=== PATIENT | male | born 1940 | race Caucasian/White ===

== ENCOUNTER 2017-01-19 21:12 | Inpatient (IN) ==
[2017-01-19] MEDS ORDERED: Ipratropium/Albuterol Neb 3 ML ONE (21:17)
[2017-01-19] MEDS ORDERED: Vancomycin 1,000 MG in D5% in Water 250 ML IVPB ONE (21:20)
[2017-01-19] MEDS ORDERED: 0.9 % Sodium Chloride 1,000 ML IVC ONE ×2 (21:20→22:23)
[2017-01-19] MEDS ORDERED: Ipratropium/Albuterol Neb 3 ML IH ONE (21:24)
--- NOTE | 2017-01-19 21:24 | Emergency Department Note ---
Disposition Clinical Impression: Acute and chronic respiratory failure ([id number]) Pneumonia Qualifiers: Qualified Code(s): J18.9 - Disposition: Admitted As Inpatient Condition: Good Time of Disposition: 23:56 SOB HPI - General Chief Complaint: ED Shortness of Breath/Dyspnea Stated Complaint: KINDRA Time Seen by Provider: 01/19/17 21:19 Source: patient, EMS Limitations: no limitations Nursing Notes Reviewed: Yes Vital Signs Reviewed: Yes - History of Present Illness Mr. Allen, 76-year-old male, presents from the [place] via [place] on BiPAP for respiratory distress. Per EMS, patient was in the mid 60s oxygen saturation on arrival to the [place] prior placement on BiPAP. Patient states his symptoms started at 5 AM this morning and were not improved with his home dose of oxygen of 2 L nasal cannula or his home albuterol inhalers. He denies any fever or chills. No myalgias, abdominal pains, back pains. No chest pain though he does have bilateral flank rib pain. PMH: History of pneumonia, COPD, pulmonary carcinoma diagnosed in 2012, CHF ( unknown type, unknown EF), dysphasia, GERD, hypertension, BPH Habits: Quit smoking in 2002. Patient is Full Code. He does desire intubation if necessary. - Related Data Home Medications Medication Instructions Recorded Confirmed Alendronate Sodium [Fosamax] 5 mg PO DAILY 01/20/17 01/20/17 Aspirin Enteric Coated [Aspirin EC] 81 mg PO DAILY 01/20/17 01/20/17 Budesonide/Formoterol 160/4.5 2 puff IH BIDR 01/20/17 01/20/17 [Symbicort 160/4.5] Carvedilol 3.125 mg PO BID 01/20/17 01/20/17 Finasteride [Proscar] 5 mg PO HS 01/20/17 01/20/17 Furosemide [Lasix] 20 mg PO 01/20/17 01/20/17 Ipratropium/Albuterol Neb [Duoneb] 3 ml IH Q4HR 01/20/17 01/20/17 Omeprazole [PriLOSEC] 20 mg PO DAILY 01/20/17 01/20/17 Roflumilast [Daliresp] 500 mcg PO DAILY 01/20/17 01/20/17 Tamsulosin [Flomax] 0.4 mg PO BID 01/20/17 01/20/17 guaiFENesin [Guaifenesin] 400 mg PO BID 01/20/17 01/20/17 predniSONE [PredniSONE] 10 mg PO DAILY 01/20/17 01/20/17 Allergies Allergy/AdvReac Type Severity Reaction Status Date / Time lisinopril Allergy Unknown See Verified 01/19/17 21:53 Comments sulfamethoxazole Allergy See Verified 01/19/17 21:53 Comments trimethoprim Allergy See Verified 01/19/17 21:53 Comments All systems ED: reviewed and negative except as stated. Past Medical History - Past Medical History Medical history: Reports: cancer, CHF, COPD - Social History Smoking Status: Former smoker Alcohol use: Reports: none Physical Exam - General Limitations: no limitations General appearance: lethargic Course Course Narrative: [facility]. He was reportedly O2 saturation 65% [facility] He is in the high 80s O2 sat when transitioning from EMS cot to the emergency department bed. On our BiPAP, his O2 saturation is 98% with improved work of breathing. Lung grayson are quite poor air movement. He is tachypneic, tachycardic in the 150s, hypotensive with systolic in the mid 80s; SIRS (+). Will begin sepsis protocol at this time. Patient has a history of congestive heart failure. Will cautiously provide gentle fluid boluses. We will likely not provide 30 mL/kg fluid bolus because of his congestive heart failure. After 1000 mL bolus inappropriate BiPAP settings, patient's respiratory rate is 18, O2 sat is 100%, systolic blood pressure is 120s, heart rate is down to 120s. We will continue to monitor. Initial lactate is within normal limits. Will cancel subsequent lactates. Patient initially placed on empiric antibodies concerning for sepsis. May consider de-escalating these on an inpatient side as his vital signs improved. He appears to responding well to resuscitative efforts. I discussed the patient with the admitting hospitalist, Dr. Gonsalez, who agrees to accept the patient for continued management with the diagnosis of acute exacerbation COPD, community acquired pneumonia.. Chest X-Ray 01/19/17 21:20 IMPRESSION: Left lower lobe pneumonia and small left pleural effusion. Recommend follow up evaluations until clear. D/ / 01/19/2017 21:53:57 Ariel Marino MD / jim Interpreting Provider: Ariel Marino MD Vital Signs Temperature 99.9 F H 01/19/17 21:13 Pulse Rate 144 01/19/17 21:13 Respiratory Rate 28 01/19/17 21:13 Blood Pressure 85/63 01/19/17 21:13 O2 Sat by Pulse Oximetry 86 01/19/17 21:13 Temperature 98.9 F 01/20/17 01:30 Pulse Rate 105 01/20/17 01:30 Respiratory Rate 23 01/20/17 04:08 Blood Pressure 131/72 01/20/17 01:30 O2 Sat by Pulse Oximetry 92 01/20/17 04:08 Oxygen Delivery Oxygen Delivery Bipap Shortness of Breath/Dyspnea - Medical Records Medical records reviewed: Yes I reviewed the patient's medical records. - Lab Data Lab results reviewed: Yes I reviewed the patient's lab results. Result diagrams: 01/19/17 21:33 01/19/17 21:33 Lab Results 01/19/17 01/19/17 01/19/17 Range/Units 21:33 21:33 21:33 WBC 18.8 H (4.3-11.1) K/mcL RBC 4.78 (4.19-5.50) M/mcL Hgb 13.0 (12.9-16.9) g/dL Hct 41.5 (37.5-50.1) % MCV 86.8 (83.0-100.0) fL MCH 27.2 L (28.0-33.3) pg MCHC 31.3 L (31.6-35.5) g/dL RDW 13.6 (11.5-14.5) % Plt Count 508 H (140-400) K/mcL MPV 8.5 L (9.4-12.4) fL Immature Gran % 0.5 (0-4) % Seg Neutrophils % 92.1 % Lymphocytes % 3.0 % Monocytes % 4.2 % Eosinophils % 0.0 % Basophils % 0.2 % Neutrophils # 17.4 H (1.6-8.9) K/mcL Lymphocytes # 0.6 (0.6-4.6) K/mcL Monocytes # 0.8 (0.0-1.3) K/mcL Eosinophils # 0.0 (0.0-0.6) K/mcL Basophils # 0.0 (0.0-0.2) K/mcL PT 11.1 (9.4-12.1) Seconds INR 1.0 APTT 24.2 L (26.0-36.0) Seconds ABG pH (7.32-7.45) pH Units ABG pCO2 (35-45) mmHg ABG pO2 (85-104) mmHg ABG HCO3 (21-27) mEq/L ABG Total CO2 (20-26) mEq/L ABG O2 Saturation (95-98) % ABG Base Excess (-2 to 3) mEq/L Jono Test O2 Delivery Device Inspired O2 (1-15=lpm [id number]=%) PEEP cm H2O Pressure Support cm H2O Sodium 139 (136-145) mEq/L Potassium 4.9 H (3.5-4.5) mEq/L Chloride 97 L (98-109) mEq/L Carbon Dioxide 33 H (19-29) mEq/L BUN 14 (8-26) mg/dL Creatinine 0.94 (0.72-1.25) mg/dL Est GFR ( Amer) > 60 (> 60) Est GFR (Non-Af Amer) > 60 (> 60) BUN/Creatinine Ratio 15 (6-26) Glucose 136 H (70-99) mg/dL Calculated Osmolality 291 (280-300) Lactic Acid (0.5-2.2) mmol/L Calcium 9.7 (8.6-10.8) mg/dL Phosphorus 2.5 (2.3-4.7) mg/dL Magnesium 1.6 (1.6-2.6) mg/dL Total Bilirubin 0.6 (0.2-1.2) mg/dL Direct Bilirubin 0.3 (0.0-0.5) mg/dL Indirect Bilirubin 0.3 (0.0-1.2) mg/dL AST 15 (5-34) Units/L ALT 18 (0-55) Units/L Alkaline Phosphatase 116 (38-126) Units/L Troponin I (0-0.03) ng/mL Serum Total Protein 7.3 (6.0-8.3) g/dL Albumin 3.4 L (3.5-5.0) g/dL Globulin 3.9 H (2.4-3.5) g/dL Albumin/Globulin Ratio 0.9 L (1.1-2.2) 01/19/17 01/19/17 01/19/17 Range/Units 21:33 21:41 22:32 WBC (4.3-11.1) K/mcL RBC (4.19-5.50) M/mcL Hgb (12.9-16.9) g/dL Hct (37.5-50.1) % MCV (83.0-100.0) fL MCH (28.0-33.3) pg MCHC (31.6-35.5) g/dL RDW (11.5-14.5) % Plt Count (140-400) K/mcL MPV (9.4-12.4) fL Immature Gran % (0-4) % Seg Neutrophils % % Lymphocytes % % Monocytes % % Eosinophils % % Basophils % % Neutrophils # (1.6-8.9) K/mcL Lymphocytes # (0.6-4.6) K/mcL Monocytes # (0.0-1.3) K/mcL Eosinophils # (0.0-0.6) K/mcL Basophils # (0.0-0.2) K/mcL PT (9.4-12.1) Seconds INR APTT (26.0-36.0) Seconds ABG pH 7.34 (7.32-7.45) pH Units ABG pCO2 63 H (35-45) mmHg ABG pO2 233 H (85-104) mmHg ABG HCO3 34 H (21-27) mEq/L ABG Total CO2 35 H (20-26) mEq/L ABG O2 Saturation 100 H (95-98) % ABG Base Excess 6 H (-2 to 3) mEq/L Jono Test Positive O2 Delivery Device BiPAP Inspired O2 90.0 (1-15=lpm [id number]=%) PEEP 8 cm H2O Pressure Support 16 cm H2O Sodium (136-145) mEq/L Potassium (3.5-4.5) mEq/L Chloride (98-109) mEq/L Carbon Dioxide (19-29) mEq/L BUN (8-26) mg/dL Creatinine (0.72-1.25) mg/dL Est GFR ( Amer) (> 60) Est GFR (Non-Af Amer) (> 60) BUN/Creatinine Ratio (6-26) Glucose (70-99) mg/dL Calculated Osmolality (280-300) Lactic Acid 1.2 (0.5-2.2) mmol/L Calcium (8.6-10.8) mg/dL Phosphorus (2.3-4.7) mg/dL Magnesium (1.6-2.6) mg/dL Total Bilirubin (0.2-1.2) mg/dL Direct Bilirubin (0.0-0.5) mg/dL Indirect Bilirubin (0.0-1.2) mg/dL AST (5-34) Units/L ALT (0-55) Units/L Alkaline Phosphatase (38-126) Units/L Troponin I 0.00 (0-0.03) ng/mL Serum Total Protein (6.0-8.3) g/dL Albumin (3.5-5.0) g/dL Globulin (2.4-3.5) g/dL Albumin/Globulin Ratio (1.1-2.2) - Radiology Data Radiology results reviewed: Yes I reviewed the patient's radiology results. - EKG Data EKG attestation: Yes I reviewed and interpreted this EKG. EKG results narrative: EKG dated 01/19/17 at 21:27 as sinus tachycardia with a rate of 139. Normal intervals with MI 152, QRS 89, QT/QTC to 70/31. He was present and rhythm is not irregular. Nonspecific ST T changes. Compared to previous dated 2012 showed no acute ischemic changes or comparison. Critical Care Time Critical Care Time: Yes Total Critical Care Time: 40 Attestation: Critical care performed: Time is exclusive of separately billable procedures. Time includes: direct patient care, patient reassessment, coordination of patient care, interpretation of data (laboratory data, radiology data, and respiratory data), review of patient's medical records, medical consultation and documentation of patient care. Procedures included in critical care time: Procedures excluded from critical care time: Attestation Statement - Attestation Attestation: IRayn MD, personally evaluated this patient and discussed their management with the resident physician. I reviewed the resident's note and agree with the documented findings, medical decision making, and plan of care. 76-year-old male with history of COPD transferred here [place] the [place] for respiratory distress. Patient presented there with increased cough and difficulty breathing. They reported his initial pulse oximetry on 2 L was 59%. They increased him to 4 L and he improved to 86%. He was then placed on BiPAP. He did receive Solu-Medrol and albuterol treatment there. Patient arrived here on BiPAP in moderate respiratory distress. Initial pulse was about 145. Oxygen saturation in the upper 80s initially. He was placed on our BiPAP and oxygen saturation improved to 100%. He received DuoNeb treatments here. Chest x-ray shows a left lower lobe pneumonia. Patient meets severe sepsis criteria. Patient improved significantly here with treatment. Heart rate improved down to 110. Blood pressure improved from 85 systolic to 128 systolic. On examination the patient is a well-developed well-nourished elderly male in moderate respiratory distress. He is alert. There is no cyanosis or diaphoresis. Breath sounds are markedly decreased bilaterally. Heart tachycardic and regular. Abdomen soft and nontender with normal bowel sounds. Chest x-ray shows a left lower lobe pneumonia. Labs reviewed. Leukocytosis. Lactic acid normal. EKG shows a sinus tachycardia with a heart rate of 139. No acute ischemic changes. Blood cultures obtained and broad-spectrum antibiotics initiated. The hospitalist, Dr. Mark, was consulted and accepted admission of the patient.
[2017-01-19] MEDS ORDERED: Cefepime HCl 2,000 MG in D5% in Water (Mini-Bag+) 100 ML IVPB STA (21:39)
[2017-01-19 22:08] LABS: Basophils % 0.2 %; Hematocrit 41.5 % (37.5-50.1); Immature Granulocytes % 0.5 % (0-4); Lymphocytes # 0.6 K/mcL (0.6-4.6); Mean Corpuscular HGB Conc 31.3 g/dL (31.6-35.5); Mean Corpuscular Hemoglobin 27.2 pg (28.0-33.3); Mean Corpuscular Volume 86.8 fL (83.0-100.0); Mean Platelet Volume 8.5 fL (9.4-12.4); Monocytes # 0.8 K/mcL (0.0-1.3); Monocytes % 4.2 %; Neutrophils # 17.4 K/mcL (1.6-8.9); Platelet Count 508 K/mcL (140-400); Red Blood Count 4.78 M/mcL (4.19-5.50); Red Cell Distribution Width 13.6 % (11.5-14.5); Segmented Neutrophils % 92.1 %
[2017-01-19 22:14] LABS: Prothrombin Time 11.1 Seconds (9.4-12.1)
[2017-01-19 22:17] LABS: Activated Partial Thrombo Time 24.2 Seconds (26.0-36.0)
[2017-01-19 22:23] LABS: Alanine Aminotransferase 18 Units/L (0-55); Albumin 3.4 g/dL (3.5-5.0); Albumin/Globulin Ratio 0.9 (1.1-2.2); Alkaline Phosphatase 116 Units/L (38-126); Aspartate Amino Transferase 15 Units/L (5-34); BUN/Creatinine Ratio 15 (6-26); Bilirubin,Direct 0.3 mg/dL (0.0-0.5); Bilirubin,Indirect 0.3 mg/dL (0.0-1.2); Bilirubin,Total 0.6 mg/dL (0.2-1.2); Blood Urea Nitrogen 14 mg/dL (8-26); Calcium 9.7 mg/dL (8.6-10.8); Carbon Dioxide 33 mEq/L (19-29); Chloride 97 mEq/L (98-109); Globulin 3.9 g/dL (2.4-3.5); Glucose 136 mg/dL (70-99); Magnesium 1.6 mg/dL (1.6-2.6); Osmolality,Calculated 291 (280-300); Phosphorous 2.5 mg/dL (2.3-4.7); Potassium 4.9 mEq/L (3.5-4.5); Sodium 139 mEq/L (136-145); Total Protein 7.3 g/dL (6.0-8.3); eGFR For African Americans > 60 (> 60); eGFR For Non-African Americans > 60 (> 60)
[2017-01-19 22:38] LABS: ABG Base Excess 6 mEq/L (-2 to 3); ABG HCO3 34 mEq/L (21-27); ABG Oxygen Saturation 100 % (95-98); ABG PCO2 63 mmHg (35-45); ABG PH 7.34 pH Units (7.32-7.45); ABG PO2 233 mmHg (85-104); ABG TCO2 35 mEq/L (20-26); Blood Gas PEEP 8 cm H2O; Blood Gas Pressure Support 16 cm H2O
--- NOTE | 2017-01-20 00:52 | Internal Med History&Physical ---
Date of Encounter: 01/20/17 Time of Encounter: 00:50 Assessment and Plan (1) Hypercapnic respiratory failure Current visit: Yes Status: Acute Patient is currently on BiPAP. FIO2 40%. Continue BiPAP. Qualifiers: Qualified Code(s): J96.92 - Respiratory failure, unspecified with hypercapnia (2) Pneumonia Current visit: Yes Status: Acute Because of acuity of presentation I will cover patient for Pseudomonas. We will start Zosyn 3.375 Q6 hours. Check sputum on blood cultures. Qualifiers: Qualified Code(s): J18.9 - Pneumonia, unspecified organism (3) Acute exacerbation of chronic obstructive pulmonary disease (COPD) Current visit: Yes Status: Acute Start patient on IV steroids and [id number] nebulizer treatments. Internal Medicine - H&P: HPI Chief complaint: sob History of present illness: Mr. Allen is a 76 year old male with a history of COPD on 2 L of home oxygen presents to the [place] today with the main completion of shortness of breath. Since yesterday patient started noticing progressive shortness of breath to the point where he is unable to breathe the rest. He is having productive cough and chest wheezing. Patient was hypoxic on arrival to the [place] emergency room down to 60% and was placed on BiPAP. He Was transferred to our facility for further management. He denies any lower extremity swelling, orthopnea, paroxysmal nocturnal dyspnea. He was afebrile. No chest pain. He was speaking in 3 to 4 word sentences during my interview. Past Med Surg Social Fam HX - Past Medical History Medical history: cancer, CHF, COPD - Social History Smoking Status: Former smoker Alcohol use: none Internal Medicine - H&P: Meds Albuterol Neb 1 PO QID 08/31/15 [History] Alfuzosin HCl 1 tab PO DAILY 08/31/15 [History] Aspirin 1 tab PO DAILY 08/31/15 [History] Carvedilol 0.5 tab PO BID 08/31/15 [History] Finasteride 1 tab PO DAILY 08/31/15 [History] Lasix 1 tab PO DAILY 08/31/15 [History] Omeprazole 1 tab PO DAILY 08/31/15 [History] Symbicort 160/4.5 BID 08/31/15 [History] 3 Allergy/AdvReac Type Severity Reaction Status Date / Time lisinopril Allergy Unknown See Verified 01/19/17 21:53 Comments sulfamethoxazole Allergy See Verified 01/19/17 21:53 Comments trimethoprim Allergy See Verified 01/19/17 21:53 Comments All Systems PM: A 10-system review of systems was performed and is negative for pertinent findings except as documented above in the HPI. Review of systems: 10 point review of systems is negative except for HPI - Constitutional Vitals: Temp Pulse Resp BP Pulse Ox 99.9 F H 107 18 128/91 94 01/19/17 21:13 01/19/17 23:16 01/20/17 00:47 01/20/17 00:47 01/19/17 23:16 Exam: Gen.: patient is alert oriented times 3 not in distress cardiac: Normal S1, S2, no additional sounds or murmurs chest: significantly diminshed air entry, expiratory wheeze Abdomen: Soft, nontender, non distended, no rebound lower extremity Lax calf muscles no swelling Neuro: no focal deficits Internal Med - H&P Results - Labs CBC & Chem 7: 01/19/17 21:33 01/19/17 21:33
[2017-01-20] MEDS: Ipratropium/Albuterol Neb 3 ML IH SCH ×6 (01:47→20:19)
[2017-01-20 04:22] LABS: BUN/Creatinine Ratio 16 (6-26); Blood Urea Nitrogen 14 mg/dL (8-26); Calcium 8.7 mg/dL (8.6-10.8); Carbon Dioxide 30 mEq/L (19-29); Chloride 100 mEq/L (98-109); Glucose 177 mg/dL (70-99); Magnesium 1.5 mg/dL (1.6-2.6); Osmolality,Calculated 291 (280-300); Potassium 4.8 mEq/L (3.5-4.5); Sodium 138 mEq/L (136-145); eGFR For African Americans > 60 (> 60); eGFR For Non-African Americans > 60 (> 60)
[2017-01-20 04:42] LABS: Hemoglobin 11.8 g/dL (12.9-16.9)
[2017-01-20 04:44] LABS: Hematocrit 38.5 % (37.5-50.1); Mean Corpuscular HGB Conc 30.6 g/dL (31.6-35.5); Mean Corpuscular Hemoglobin 26.9 pg (28.0-33.3); Mean Corpuscular Volume 87.9 fL (83.0-100.0); Mean Platelet Volume 8.7 fL (9.4-12.4); Nucleated Red Blood Cells 0.1 /100 WBC (0); Platelet Count 508 K/mcL (140-400); Red Blood Count 4.38 M/mcL (4.19-5.50); Red Cell Distribution Width 13.7 % (11.5-14.5)
[2017-01-20] MEDS ORDERED: Piperacillin/Tazobactam 3.375 GM in D5% in Water (Mini-Bag+) 100 ML IVPB SCH (06:00)
[2017-01-20 06:15] LABS: Lymphocytes # 0.5 K/mcL (0.6-4.6); Monocytes # 2.1 K/mcL (0.0-1.3); Neutrophils # 23.7 K/mcL (1.6-8.9)
[2017-01-20 06:16] LABS: Large Platelets Present (Not Present); Platelet Estimate Increased (Normal)
[2017-01-20] MEDS: methylPREDNISolone 125 MG/2 ML VIAL IVP SCH ×4 (06:28→22:21)
[2017-01-20] MEDS: *HR* Heparin 5,000 UNIT/ML VIAL SQ SCH ×3 (06:29→22:19)
--- NOTE | 2017-01-20 09:09 | Electrocardiograph Report ---
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
--- NOTE | 2017-01-20 09:43 | Event Note ---
<Armand Allen R - Last Filed: 01/20/17 14:10> Date of Encounter: 01/20/17 Time of Encounter: 09:33 69 year old male with PMH of COPD (2L O2 at home) and CHF here with acute exacerbation of COPD and left lower lobe pneumonia. He reports that his breathing is improved compared to last night, but still has conversational dyspnea. Continues to report productive cough and wheezing. Denies chest pain, N /V/D/C, dysuria or leg pain/edema. EXAM: Gen: NAD, A7Ox3 Resp: diminished breath sounds bilaterally, +expiratory wheeze CV: RRR, S1 and S2, no murmurs. No edema Abd: soft, NT/ND, BSx4, no organomegaly Ext: no edema, pulses equal bilaterally Neuro: no focal deficits Skin: dry and intact PLAN: Hypercapnic respiratory failure - continue BiPAP Left Lower Lobe Pneumonia - WBC 26 with bandemia, continue antibiotics, sputum and blood cultures pending AECOPD - continue steroids and duonebs <River Modi P - Last Filed: 01/20/17 17:41> Date of Encounter: 01/20/17 I examined this patient and my medical decision-making was reviewed with the Resident Physician. I agree with the documented findings, disposition and treatment plan as described except to the extent set forth below.
[2017-01-20] MEDS ORDERED: ALENDRONATE SODIUM 5 MG PO SCH (11:30)
[2017-01-20] MEDS: (Roflumilast [Daliresp] 500 MCG) PO SCH (11:39)
[2017-01-20] MEDS: Budesonide/Formoterol 160/4.5 MDI IH SCH ×2 (12:06→20:21)
[2017-01-20] MEDS: GuaiFENesin Liq 200 MG/10 ML UDC PO SCH ×2 (12:09→22:19)
[2017-01-20] MEDS: Finasteride 5 MG TABLET PO SCH ×2 (12:09→22:19)
[2017-01-20] MEDS: Aspirin Enteric Coated 81 MG Tablet PO SCH (12:09)
[2017-01-20] MEDS: Piperacillin/Tazobactam 3.375 GM in D5% in Water (Mini-Bag+) 100 ML IVPB SCH ×2 (14:27→22:20)
[2017-01-21] MEDS: Ipratropium/Albuterol Neb 3 ML IH SCH ×7 (00:12→23:23)
[2017-01-21] MEDS: *HR* Heparin 5,000 UNIT/ML VIAL SQ SCH ×3 (05:47→22:01)
[2017-01-21] MEDS: methylPREDNISolone 125 MG/2 ML VIAL IVP SCH ×4 (05:49→23:27)
[2017-01-21] MEDS: Piperacillin/Tazobactam 3.375 GM in D5% in Water (Mini-Bag+) 100 ML IVPB SCH ×3 (05:53→22:00)
[2017-01-21 07:45] LABS: BUN/Creatinine Ratio 24 (6-26); Blood Urea Nitrogen 17 mg/dL (8-26); Carbon Dioxide 32 mEq/L (19-29); Chloride 101 mEq/L (98-109); Glucose 137 mg/dL (70-99); Osmolality,Calculated 294 (280-300); Potassium 3.9 mEq/L (3.5-4.5); Sodium 140 mEq/L (136-145); eGFR For African Americans > 60 (> 60); eGFR For Non-African Americans > 60 (> 60)
[2017-01-21 07:51] LABS: Basophils % 0.1 %; Hematocrit 34.7 % (37.5-50.1); Hemoglobin 10.8 g/dL (12.9-16.9); Lymphocytes % 6.7 %; Mean Corpuscular HGB Conc 31.1 g/dL (31.6-35.5); Mean Corpuscular Hemoglobin 27.1 pg (28.0-33.3); Mean Corpuscular Volume 87.2 fL (83.0-100.0); Mean Platelet Volume 8.8 fL (9.4-12.4); Monocytes # 0.5 K/mcL (0.0-1.3); Monocytes % 3.1 %; Neutrophils # 13.6 K/mcL (1.6-8.9); Platelet Count 434 K/mcL (140-400); Red Blood Count 3.98 M/mcL (4.19-5.50); Red Cell Distribution Width 13.9 % (11.5-14.5); Segmented Neutrophils % 89.1 %
[2017-01-21] MEDS: Budesonide/Formoterol 160/4.5 MDI IH SCH ×2 (08:09→20:12)
[2017-01-21] MEDS: Aspirin Enteric Coated 81 MG Tablet PO SCH (08:22)
[2017-01-21] MEDS: GuaiFENesin Liq 200 MG/10 ML UDC PO SCH ×2 (08:22→22:09)
[2017-01-21] MEDS: (Roflumilast [Daliresp] 500 MCG) PO SCH (08:22)
[2017-01-21 09:46] LABS: ABG Base Excess 6 mEq/L (-2 to 3); ABG HCO3 33 mEq/L (21-27); ABG Oxygen Saturation 78 % (95-98); ABG PCO2 54 mmHg (35-45); ABG PH 7.39 pH Units (7.32-7.45); ABG PO2 44 mmHg (85-104); ABG TCO2 34 mEq/L (20-26)
--- NOTE | 2017-01-21 18:09 | Internal Med Progress Note ---
Date of Encounter: 01/21/17 Time of Encounter: 18:07 - Assessment and plan (1) Acute exacerbation of chronic obstructive pulmonary disease (COPD) Current Visit: Yes Status: Acute Assessment and plan: Patient is inaccurate exacerbation of her COPD. His presently hypoxic He is on steroids/antibiotics/bronchodilators. We will continue present treatment for now. (2) Hypercapnic respiratory failure Current Visit: Yes Status: Acute Assessment and plan: Patient will elevated PCO2 54 Upon admission his PCO2 was 63. Patient has significant improvement. We will continue same treatment for now. 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 We will continue present treatment for him now - Subjective Interval history: Patient seen and examined. Chart reviewed. patient is comfortably lying in the bed. patient is occasionally short of breath. Patient denies chest pain, dizziness, diarrhea, abdominal pain or nausea. - Constitutional Vitals: Temp Pulse Resp BP Pulse Ox 98.3 F 98 18 120/68 98 01/21/17 16:06 01/21/17 16:06 01/21/17 16:06 01/21/17 16:06 01/21/17 16:06 General appearance: Present: A&O X 3, pleasant, no acute distress, answers questions appropriately - Head Head exam: Present: atraumatic, normocephalic - Eye Eye exam: Present: PERRL, conjuntiva pink, sclera anicteric Pupils: Present: PERRL - Neck Neck exam general surgery: Present: supple, trachea midline. Absent: lymphadenopathy - Respiratory Respiratory exam: Present: CTAB. Absent: accessory muscle use, rales, rhonchi, wheezes - Cardiovascular Cardiovascular exam: Present: RRR, +S1, +S2. Absent: diastolic murmur, gallop, rubs, systolic murmur - GI/Abdominal GI/Abdominal exam: Present: normal bowel sounds, soft, no peritoneal signs. Absent: distended, tenderness - Extremities Exam Extremities exam: Present: warm, radial pulses palpable and symmetrical. Absent : calf tenderness, cyanotic, pedal edema - Neurological Exam Neurological exam: Present: CN II-XII intact, oriented X3, no focal deficits. Absent: pronater drift, facial droop, speech deficit - Skin Skin exam: Present: dry, intact Internal Medicine: Result - Labs CBC & Chem 7: 01/21/17 07:09 01/21/17 07:09 Labs: Short CBC 01/21/17 Range/Units 07:09 WBC 15.2 H (4.3-11.1) K/mcL Hgb 10.8 L (12.9-16.9) g/dL Hct 34.7 L (37.5-50.1) % Plt Count 434 H (140-400) K/mcL Neutrophils # 13.6 H (1.6-8.9) K/mcL BMP 01/21/17 07:09 Sodium 140 Potassium 3.9 Chloride 101 Carbon Dioxide 32 H BUN 17 Creatinine 0.71 L Glucose 137 H Calcium 9.0 - ABG Interpretation ABG results: ABG ABG pH 7.39 pH Units (7.32-7.45) 01/21/17 09:36 ABG pCO2 54 mmHg (35-45) H 01/21/17 09:36 ABG pO2 44 mmHg (85-104) L* 01/21/17 09:36 ABG O2 Saturation 78 % (95-98) L 01/21/17 09:36 PT/INR, D-dimer PT 11.1 Seconds (9.4-12.1) 01/19/17 21:33 - VTE Documentation of Mechanical Device: Intermittent pneumatic compression device Consult Discharge Plan - Plan [facility]errals: [facility] [Primary Care Provider] -
[2017-01-21] MEDS: Finasteride 5 MG TABLET PO SCH (22:00)
[2017-01-22 03:35] LABS: Basophils % 0.1 %; Hemoglobin 10.2 g/dL (12.9-16.9); Immature Granulocytes % 1.2 % (0-4); Lymphocytes # 0.8 K/mcL (0.6-4.6); Lymphocytes % 6.1 %; Mean Corpuscular HGB Conc 30.9 g/dL (31.6-35.5); Mean Corpuscular Hemoglobin 27.1 pg (28.0-33.3); Mean Corpuscular Volume 87.5 fL (83.0-100.0); Monocytes # 0.5 K/mcL (0.0-1.3); Monocytes % 3.5 %; Neutrophils # 12.2 K/mcL (1.6-8.9); Platelet Count 413 K/mcL (140-400); Red Blood Count 3.77 M/mcL (4.19-5.50); Segmented Neutrophils % 89.1 %
[2017-01-22 03:44] LABS: BUN/Creatinine Ratio 26 (6-26); Blood Urea Nitrogen 20 mg/dL (8-26); Calcium 8.6 mg/dL (8.6-10.8); Carbon Dioxide 35 mEq/L (19-29); Chloride 100 mEq/L (98-109); Glucose 166 mg/dL (70-99); Osmolality,Calculated 298 (280-300); Sodium 141 mEq/L (136-145); eGFR For African Americans > 60 (> 60); eGFR For Non-African Americans > 60 (> 60)
[2017-01-22] MEDS: Ipratropium/Albuterol Neb 3 ML IH SCH ×6 (03:56→23:43)
[2017-01-22] MEDS: methylPREDNISolone 125 MG/2 ML VIAL IVP SCH ×3 (05:53→16:51)
[2017-01-22] MEDS: *HR* Heparin 5,000 UNIT/ML VIAL SQ SCH ×3 (05:53→21:01)
[2017-01-22] MEDS: Piperacillin/Tazobactam 3.375 GM in D5% in Water (Mini-Bag+) 100 ML IVPB SCH ×3 (05:54→21:01)
[2017-01-22 06:17] LABS: Bilirubin,Urine Negative (Negative); Blood,Urine Small (Negative); Clarity,Urine Clear (Clear); Color,Urine Yellow (Yellow); Glucose,Urine (UA) 100 mg/dL (Normal); Ketones,Urine Negative (Negative); Leukocyte Esterase,Urine Negative (Negative); Nitrite,Urine Negative (Negative); Protein,Urine 30 mg/dL (Neg-Trace); Specific Gravity,Urine > 1.030 (1.010-1.025); Urobilinogen,Urine Normal (Normal)
[2017-01-22 06:20] LABS: Bacteria,Urine None Seen per hpf (None-Few); Hyaline Casts,Urine None Seen per lpf (None-Few); RBC,Urine 30-50 per hpf (0-3); Squamous Epithelial Cell,Urine Many per lpf (None-Few)
[2017-01-22] MEDS: Budesonide/Formoterol 160/4.5 MDI IH SCH ×2 (08:11→20:31)
[2017-01-22] MEDS: (Roflumilast [Daliresp] 500 MCG) PO SCH (10:00)
[2017-01-22] MEDS: Aspirin Enteric Coated 81 MG Tablet PO SCH (10:00)
[2017-01-22] MEDS: GuaiFENesin Liq 200 MG/10 ML UDC PO SCH ×2 (10:00→20:48)
--- NOTE | 2017-01-22 17:44 | Internal Med Progress Note ---
Date of Encounter: 01/22/17 Time of Encounter: 17:42 - Assessment and plan (1) Acute exacerbation of chronic obstructive pulmonary disease (COPD) Current Visit: Yes Status: Acute Assessment and plan: Patient is in acute exacerbation of her COPD. His presently hypoxic He is on steroids/antibiotics/bronchodilators. We will continue present treatment for now. 01/22/2017 Patient oxygen saturation is much better as compared to yesterday. Antibiotics: Day 2 Patient presently on steroids. Patient is on bronchodilators. We will continue the same treatment for now (2) Hypercapnic respiratory failure Current Visit: Yes Status: Acute Assessment and plan: Patient will elevated PCO2 54 Upon admission his PCO2 was 63. Patient has significant improvement. We will continue same treatment for now. 01/22/2017 Patient's oxygenation improved. Patient is more alert and oriented. 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 We will continue present treatment for him now - Subjective Interval history: Patient seen and examined. Chart reviewed. patient is comfortably lying in the bed. patient is occasionally short of breath. Patient denies chest pain, dizziness, diarrhea, abdominal pain or nausea. 01/22/2017 Patient seen and examined. Chart reviewed. Patient comfortably lying in the bed. Patient feels much better as compared to yesterday. Patient denies chest pain, dizziness, diarrhea, abdominal pain - Constitutional Vitals: Temp Pulse Resp BP Pulse Ox 97.9 F 89 17 127/65 95 01/22/17 15:00 01/22/17 15:00 01/22/17 15:00 01/22/17 15:00 01/22/17 15:00 General appearance: Present: A&O X 3, pleasant, no acute distress, answers questions appropriately - Head Head exam: Present: atraumatic, normocephalic - Eye Eye exam: Present: PERRL, conjuntiva pink, sclera anicteric Pupils: Present: PERRL - Neck Neck exam general surgery: Present: supple, trachea midline. Absent: lymphadenopathy - Respiratory Respiratory exam: Present: CTAB. Absent: accessory muscle use, rales, rhonchi, wheezes - Cardiovascular Cardiovascular exam: Present: RRR, +S1, +S2. Absent: diastolic murmur, gallop, rubs, systolic murmur - GI/Abdominal GI/Abdominal exam: Present: normal bowel sounds, soft, no peritoneal signs. Absent: distended, tenderness - Extremities Exam Extremities exam: Present: warm, radial pulses palpable and symmetrical. Absent : calf tenderness, cyanotic, pedal edema - Neurological Exam Neurological exam: Present: CN II-XII intact, oriented X3, no focal deficits. Absent: pronater drift, facial droop, speech deficit - Skin Skin exam: Present: dry, intact Internal Medicine: Result - Labs CBC & Chem 7: 01/22/17 02:50 01/22/17 02:50 Labs: Short CBC 01/22/17 Range/Units 02:50 WBC 13.7 H (4.3-11.1) K/mcL Hgb 10.2 L (12.9-16.9) g/dL Hct 33.0 L (37.5-50.1) % Plt Count 413 H (140-400) K/mcL Neutrophils # 12.2 H (1.6-8.9) K/mcL BMP 01/22/17 02:50 Sodium 141 Potassium 4.0 Chloride 100 Carbon Dioxide 35 H BUN 20 Creatinine 0.76 Glucose 166 H Calcium 8.6 Urine 01/22/17 Range/Units 06:05 Urine Color Yellow (Yellow) Urine Clarity Clear (Clear) Urine pH 6.0 (5.0-8.0) pH Units Ur Specific [place] > 1.030 H (1.010-1.025) Urine Protein 30 H (Neg-Trace) mg/dL Urine Glucose (UA) 100 H (Normal) mg/dL - ABG Interpretation ABG results: ABG ABG pH 7.39 pH Units (7.32-7.45) 01/21/17 09:36 ABG pCO2 54 mmHg (35-45) H 01/21/17 09:36 ABG pO2 44 mmHg (85-104) L* 01/21/17 09:36 ABG O2 Saturation 78 % (95-98) L 01/21/17 09:36 PT/INR, D-dimer PT 11.1 Seconds (9.4-12.1) 01/19/17 21:33 - VTE Documentation of Mechanical Device: Intermittent pneumatic compression device Consult Discharge Plan - Plan [facility]errals: [facility] [Primary Care Provider] -
[2017-01-22] MEDS: Finasteride 5 MG TABLET PO SCH (20:49)
[2017-01-23] MEDS: methylPREDNISolone 125 MG/2 ML VIAL IVP SCH ×3 (00:02→12:18)
[2017-01-23] MEDS: Ipratropium/Albuterol Neb 3 ML IH SCH ×6 (03:35→23:06)
[2017-01-23 04:18] LABS: Basophils % 0.1 %; Hematocrit 34.5 % (37.5-50.1); Hemoglobin 10.3 g/dL (12.9-16.9); Immature Granulocytes % 1.1 % (0-4); Lymphocytes # 0.7 K/mcL (0.6-4.6); Lymphocytes % 7.4 %; Mean Corpuscular HGB Conc 29.9 g/dL (31.6-35.5); Mean Corpuscular Hemoglobin 26.5 pg (28.0-33.3); Mean Corpuscular Volume 88.7 fL (83.0-100.0); Mean Platelet Volume 8.8 fL (9.4-12.4); Monocytes # 0.3 K/mcL (0.0-1.3); Monocytes % 2.6 %; Neutrophils # 8.7 K/mcL (1.6-8.9); Platelet Count 439 K/mcL (140-400); Red Blood Count 3.89 M/mcL (4.19-5.50); Red Cell Distribution Width 13.9 % (11.5-14.5); Segmented Neutrophils % 88.8 %
[2017-01-23 04:35] LABS: BUN/Creatinine Ratio 35 (6-26); Blood Urea Nitrogen 25 mg/dL (8-26); Calcium 8.6 mg/dL (8.6-10.8); Carbon Dioxide 35 mEq/L (19-29); Chloride 102 mEq/L (98-109); Glucose 167 mg/dL (70-99); Osmolality,Calculated 304 (280-300); Potassium 4.1 mEq/L (3.5-4.5); Sodium 143 mEq/L (136-145); eGFR For African Americans > 60 (> 60); eGFR For Non-African Americans > 60 (> 60)
[2017-01-23] MEDS: Piperacillin/Tazobactam 3.375 GM in D5% in Water (Mini-Bag+) 100 ML IVPB SCH ×3 (05:31→22:45)
[2017-01-23] MEDS: *HR* Heparin 5,000 UNIT/ML VIAL SQ SCH ×3 (05:33→21:07)
[2017-01-23] MEDS: Budesonide/Formoterol 160/4.5 MDI IH SCH ×2 (07:29→19:38)
[2017-01-23] MEDS: Aspirin Enteric Coated 81 MG Tablet PO SCH (09:06)
[2017-01-23] MEDS: GuaiFENesin Liq 200 MG/10 ML UDC PO SCH ×2 (09:06→21:07)
[2017-01-23] MEDS: (Roflumilast [Daliresp] 500 MCG) PO SCH (09:06)
--- NOTE | 2017-01-23 11:00 | Internal Med Progress Note ---
<Armand Allen - Last Filed: 01/23/17 17:37> Date of Encounter: 01/23/17 Time of Encounter: 10:58 - Assessment and plan (1) Acute exacerbation of chronic obstructive pulmonary disease (COPD) Current Visit: Yes Status: Acute Assessment and plan: Patient is in acute exacerbation of her COPD. Hypoxic on 7L O2 today (on 2L O2 at home). Reports he takes symbicort at home, but had a prior reaction to spiriva Plan: Decrease steroids, add mucinex, continue bronchodilators, and BiPAP Continue Zosyn day #3 Wean oxygen as tolerated (2) Hypercapnic respiratory failure Current Visit: Yes Status: Acute Assessment and plan: Patient will elevated PCO2 54. Upon admission his PCO2 was 63. Clinically pt is much improved. Continue treatment as above Qualifiers: Chronicity: acute on chronic Qualified Code(s): J96.22 - Acute and chronic respiratory failure with hypercapnia (3) Pneumonia Current Visit: Yes Status: Acute Assessment and plan: Left lower lobe pneumonia on CXR. On zosyn day #3 - will de-escalate antibiotics as able. WBC improving. Blood culture 01/19/17 - no growth to date Sputum culture 01/22/17 - no growth to date Qualifiers: Pneumonia type: due to unspecified organism Laterality: left Lung location: lower lobe of lung Qualified Code(s): J18.1 - Lobar pneumonia, unspecified organism (4) Primary cancer of right middle lobe of lung Current Visit: No Status: Acute Assessment and plan: History of for lung cancer. We will continue present treatment for him now - Subjective Interval history: Pt lying comfortably in bed. Reports his breathing is mildly improved. Still reports productive cough. Denies chest pain, N/V?D?C, dysuria, or leg pain/edema - Constitutional Vitals: Temp Pulse Resp BP Pulse Ox 97.9 F 83 14 127/79 99 01/23/17 10:31 01/23/17 10:31 01/23/17 10:31 01/23/17 10:31 01/23/17 10:31 General appearance: Present: A&O X 3, pleasant, no acute distress, answers questions appropriately - Head Head exam: Present: atraumatic, normocephalic - Eye Eye exam: Present: conjuntiva pink, sclera anicteric - Neck Neck exam general surgery: Present: supple, trachea midline. Absent: lymphadenopathy - Respiratory Respiratory exam: Present: decreased breath sounds. Absent: accessory muscle use, rales, rhonchi, wheezes - Cardiovascular Cardiovascular exam: Present: RRR, +S1, +S2. Absent: diastolic murmur, systolic murmur - GI/Abdominal GI/Abdominal exam: Present: normal bowel sounds, soft, no peritoneal signs. Absent: distended, tenderness - Extremities Exam Extremities exam: Present: warm, radial pulses palpable and symmetrical. Absent : calf tenderness, cyanotic, pedal edema - Neurological Exam Neurological exam: Present: CN II-XII intact, oriented X3, no focal deficits. Absent: facial droop, speech deficit - Skin Skin exam: Present: dry, intact Internal Medicine: Result - Labs CBC & Chem 7: 01/23/17 03:13 01/23/17 03:13 Labs: Short CBC 01/23/17 Range/Units 03:13 WBC 9.8 (4.3-11.1) K/mcL Hgb 10.3 L (12.9-16.9) g/dL Hct 34.5 L (37.5-50.1) % Plt Count 439 H (140-400) K/mcL Neutrophils # 8.7 (1.6-8.9) K/mcL BMP 01/23/17 03:13 Sodium 143 Potassium 4.1 Chloride 102 Carbon Dioxide 35 H BUN 25 Creatinine 0.72 Glucose 167 H Calcium 8.6 - ABG Interpretation ABG results: ABG ABG pH 7.39 pH Units (7.32-7.45) 01/21/17 09:36 ABG pCO2 54 mmHg (35-45) H 01/21/17 09:36 ABG pO2 44 mmHg (85-104) L* 01/21/17 09:36 ABG O2 Saturation 78 % (95-98) L 01/21/17 09:36 PT/INR, D-dimer PT 11.1 Seconds (9.4-12.1) 01/19/17 21:33 - VTE Documentation of Mechanical Device: Intermittent pneumatic compression device Consult Discharge Plan - Plan [facility] Provider[facility] - <River Modi P - Last Filed: 01/23/17 17:46> Date of Encounter: 01/23/17 - Assessment and plan (1) Acute exacerbation of chronic obstructive pulmonary disease (COPD) Current Visit: Yes Status: Acute (2) Hypercapnic respiratory failure Current Visit: Yes Status: Acute Qualifiers: Chronicity: acute on chronic Qualified Code(s): J96.22 - Acute and chronic respiratory failure with hypercapnia (3) Primary cancer of right middle lobe of lung Current Visit: No Status: Acute - Constitutional Vitals: Temp Pulse Resp BP Pulse Ox 97.9 F 79 20 130/71 99 01/23/17 10:31 01/23/17 15:09 01/23/17 15:09 01/23/17 15:09 01/23/17 15:09 Internal Medicine: Result - Labs CBC & Chem 7: 01/23/17 03:13 01/23/17 03:13 Labs: Short CBC 01/23/17 Range/Units 03:13 WBC 9.8 (4.3-11.1) K/mcL Hgb 10.3 L (12.9-16.9) g/dL Hct 34.5 L (37.5-50.1) % Plt Count 439 H (140-400) K/mcL Neutrophils # 8.7 (1.6-8.9) K/mcL BMP 01/23/17 03:13 Sodium 143 Potassium 4.1 Chloride 102 Carbon Dioxide 35 H BUN 25 Creatinine 0.72 Glucose 167 H Calcium 8.6 - ABG Interpretation ABG results: ABG ABG pH 7.39 pH Units (7.32-7.45) 01/21/17 09:36 ABG pCO2 54 mmHg (35-45) H 01/21/17 09:36 ABG pO2 44 mmHg (85-104) L* 01/21/17 09:36 ABG O2 Saturation 78 % (95-98) L 01/21/17 09:36 PT/INR, D-dimer PT 11.1 Seconds (9.4-12.1) 01/19/17 21:33 - Attending Attestation I examined this patient and my medical decision-making was reviewed with the Resident Physician. I agree with the documented findings, disposition and treatment plan as described except to the extent set forth below. Acute resp failure, left lower lobe PNA/AECOPD. On BiPAP, antibiotics, steroids , and duonebs.
[2017-01-23] MEDS: Furosemide 20 MG TABLET PO SCH (12:18)
[2017-01-23] MEDS: MethylPREDNISolone 40 MG/ML VIAL IVP SCH ×2 (17:02→23:39)
[2017-01-23] MEDS: Finasteride 5 MG TABLET PO SCH (21:07)
[2017-01-24] MEDS: Ipratropium/Albuterol Neb 3 ML IH SCH ×5 (04:15→20:29)
[2017-01-24] MEDS: *HR* Heparin 5,000 UNIT/ML VIAL SQ SCH ×3 (05:38→21:11)
[2017-01-24] MEDS: Piperacillin/Tazobactam 3.375 GM in D5% in Water (Mini-Bag+) 100 ML IVPB SCH ×3 (05:40→19:57)
[2017-01-24 06:14] LABS: Hematocrit 35.3 % (37.5-50.1); Hemoglobin 10.7 g/dL (12.9-16.9); Mean Corpuscular HGB Conc 30.3 g/dL (31.6-35.5); Mean Corpuscular Volume 89.1 fL (83.0-100.0); Mean Platelet Volume 8.9 fL (9.4-12.4); Platelet Count 393 K/mcL (140-400); Red Blood Count 3.96 M/mcL (4.19-5.50); Red Cell Distribution Width 13.6 % (11.5-14.5)
[2017-01-24 06:20] LABS: BUN/Creatinine Ratio 35 (6-26); Blood Urea Nitrogen 26 mg/dL (8-26); Calcium 8.6 mg/dL (8.6-10.8); Carbon Dioxide 36 mEq/L (19-29); Chloride 101 mEq/L (98-109); Glucose 160 mg/dL (70-99); Osmolality,Calculated 306 (280-300); Potassium 4.3 mEq/L (3.5-4.5); Sodium 144 mEq/L (136-145); eGFR For African Americans > 60 (> 60); eGFR For Non-African Americans > 60 (> 60)
[2017-01-24] MEDS: Budesonide/Formoterol 160/4.5 MDI IH SCH ×2 (08:01→20:30)
[2017-01-24] MEDS: MethylPREDNISolone 40 MG/ML VIAL IVP SCH (09:17)
[2017-01-24] MEDS: Aspirin Enteric Coated 81 MG Tablet PO SCH (09:17)
[2017-01-24] MEDS: GuaiFENesin Liq 200 MG/10 ML UDC PO SCH ×2 (09:17→21:11)
[2017-01-24] MEDS: (Roflumilast [Daliresp] 500 MCG) PO SCH (09:18)
--- NOTE | 2017-01-24 10:05 | Internal Med Progress Note ---
<Armand Allen - Last Filed: 01/24/17 16:28> Date of Encounter: 01/24/17 Time of Encounter: 10:02 - Assessment and plan (1) Acute exacerbation of chronic obstructive pulmonary disease (COPD) Current Visit: Yes Status: Acute Assessment and plan: Patient is in acute exacerbation of her COPD. Down to home O2 level at 2L. Reports he takes symbicort at home, but had a prior reaction to spiriva Plan: Continue steroids, mucinex, bronchodilators, and BiPAP Continue Zosyn day #5 - sputum culture growing gram negative rods - pending sensitivities Wean oxygen as tolerated (2) Hypercapnic respiratory failure Current Visit: Yes Status: Acute Assessment and plan: Patient will elevated PCO2 54. Upon admission his PCO2 was 63. Clinically pt is much improved. Continue treatment as above Will obtain overnight BiPAP qualification Qualifiers: Chronicity: acute on chronic Qualified Code(s): J96.22 - Acute and chronic respiratory failure with hypercapnia (3) Pneumonia Current Visit: Yes Status: Acute Assessment and plan: Left lower lobe pneumonia on CXR. On zosyn day #4 - will de-escalate antibiotics as able. WBC improving. Blood culture 01/19/17 - no growth to date Sputum culture 01/22/17 - growing gram negative rods - sensitivity pending Qualifiers: Pneumonia type: due to unspecified organism Laterality: left Lung location: lower lobe of lung Qualified Code(s): J18.1 - Lobar pneumonia, unspecified organism (4) Primary cancer of right middle lobe of lung Current Visit: No Status: Acute Assessment and plan: History of for lung cancer. We will continue present treatment for him now - Subjective Interval history: Pt sitting comfortably in bed. Reports his breathing is continuing to improve. He is now down to his home O2 level of 2L. Still reports productive cough. Denies chest pain, N/V?D?C, dysuria, or leg pain/edema - Constitutional Vitals: Temp Pulse Resp BP Pulse Ox 97.0 F L 62 16 118/63 97 01/24/17 06:29 01/24/17 06:29 01/24/17 08:02 01/24/17 06:29 01/24/17 08:02 General appearance: Present: A&O X 3, pleasant, no acute distress, answers questions appropriately - Head Head exam: Present: atraumatic, normocephalic - Eye Eye exam: Present: conjuntiva pink, sclera anicteric - Neck Neck exam general surgery: Present: supple, trachea midline. Absent: lymphadenopathy - Respiratory Respiratory exam: Present: decreased breath sounds. Absent: accessory muscle use, rales, rhonchi, wheezes - Cardiovascular Cardiovascular exam: Present: RRR, +S1, +S2. Absent: diastolic murmur, systolic murmur - GI/Abdominal GI/Abdominal exam: Present: normal bowel sounds, soft, no peritoneal signs. Absent: distended, tenderness - Extremities Exam Extremities exam: Present: warm, radial pulses palpable and symmetrical. Absent : calf tenderness, cyanotic, pedal edema - Neurological Exam Neurological exam: Present: CN II-XII intact, oriented X3, no focal deficits. Absent: facial droop, speech deficit - Skin Skin exam: Present: dry, intact Internal Medicine: Result - Labs CBC & Chem 7: 01/24/17 05:21 01/24/17 05:21 Labs: Short CBC 01/24/17 Range/Units 05:21 WBC 7.5 (4.3-11.1) K/mcL Hgb 10.7 L (12.9-16.9) g/dL Hct 35.3 L (37.5-50.1) % Plt Count 393 (140-400) K/mcL BMP 01/24/17 05:21 Sodium 144 Potassium 4.3 Chloride 101 Carbon Dioxide 36 H BUN 26 Creatinine 0.74 Glucose 160 H Calcium 8.6 - ABG Interpretation ABG results: ABG ABG pH 7.39 pH Units (7.32-7.45) 01/21/17 09:36 ABG pCO2 54 mmHg (35-45) H 01/21/17 09:36 ABG pO2 44 mmHg (85-104) L* 01/21/17 09:36 ABG O2 Saturation 78 % (95-98) L 01/21/17 09:36 PT/INR, D-dimer PT 11.1 Seconds (9.4-12.1) 01/19/17 21:33 - VTE Documentation of Mechanical Device: Intermittent pneumatic compression device Consult Discharge Plan - Plan [facility]errals: [facility]Primary Care Provider[facility] - <Andre Newby - Last Filed: 01/24/17 19:07> Date of Encounter: 01/24/17 - Assessment and plan (1) Acute and chronic respiratory failure ([id number]) Current Visit: Yes Status: Acute Qualifiers: Respiratory failure complication: hypercapnia Qualified Code(s): J96.22 - Acute and chronic respiratory failure with hypercapnia (2) Acute exacerbation of chronic obstructive pulmonary disease (COPD) Current Visit: Yes Status: Acute (3) Pneumonia Current Visit: Yes Status: Suspected Qualifiers: Pneumonia type: due to Pneumococcus Laterality: left Lung location: lower lobe of lung Qualified Code(s): J13 - Pneumonia due to Streptococcus pneumoniae (4) Primary cancer of right middle lobe of lung Current Visit: No Status: Acute - Constitutional Vitals: Temp Pulse Resp BP Pulse Ox 97.6 F 80 16 115/70 98 01/24/17 15:04 01/24/17 15:04 01/24/17 15:51 01/24/17 15:04 01/24/17 15:51 Internal Medicine: Result - Labs CBC & Chem 7: 01/24/17 05:21 01/24/17 05:21 Labs: Short CBC 01/24/17 Range/Units 05:21 WBC 7.5 (4.3-11.1) K/mcL Hgb 10.7 L (12.9-16.9) g/dL Hct 35.3 L (37.5-50.1) % Plt Count 393 (140-400) K/mcL BMP 01/24/17 05:21 Sodium 144 Potassium 4.3 Chloride 101 Carbon Dioxide 36 H BUN 26 Creatinine 0.74 Glucose 160 H Calcium 8.6 - ABG Interpretation ABG results: ABG ABG pH 7.39 pH Units (7.32-7.45) 01/21/17 09:36 ABG pCO2 54 mmHg (35-45) H 01/21/17 09:36 ABG pO2 44 mmHg (85-104) L* 01/21/17 09:36 ABG O2 Saturation 78 % (95-98) L 01/21/17 09:36 PT/INR, D-dimer PT 11.1 Seconds (9.4-12.1) 01/19/17 21:33 - Attending Attestation I examined this patient and my medical decision-making was reviewed with the Resident Physician on 01/24/17. I agree with the documented findings, disposition and treatment plan as described except to the extent set forth below. Mr Allen is currently admitted for acute exac COPD. He remains moderate to high risk due to potential for worsening respiratory status. Mr. Allen is doing OK. No fever or chills. No new issues. Exam Alert. Comfortable Heart reg Lungs with some wheeze Abd soft No edema I/P 1. Hyperapnic resp failure 2. COPD Further diagnoses and plan as above.
[2017-01-24] MEDS ORDERED: Benzocaine 20% 9 GM GEL..GRAM. TP PRN (11:42)
[2017-01-24] MEDS: Furosemide 20 MG TABLET PO SCH (11:46)
[2017-01-24] MEDS: Magic Mouthwash 10 ML UD Cup PO SCH (14:51)
[2017-01-24] MEDS: Finasteride 5 MG TABLET PO SCH (21:11)
[2017-01-25] MEDS: Ipratropium/Albuterol Neb 3 ML IH SCH ×7 (00:05→23:05)
[2017-01-25] MEDS: Piperacillin/Tazobactam 3.375 GM in D5% in Water (Mini-Bag+) 100 ML IVPB SCH ×3 (01:44→20:16)
[2017-01-25] MEDS: *HR* Heparin 5,000 UNIT/ML VIAL SQ SCH ×3 (05:08→20:08)
[2017-01-25 05:14] LABS: Hematocrit 34.6 % (37.5-50.1); Hemoglobin 10.3 g/dL (12.9-16.9); Mean Corpuscular HGB Conc 29.8 g/dL (31.6-35.5); Mean Corpuscular Hemoglobin 26.2 pg (28.0-33.3); Mean Platelet Volume 8.8 fL (9.4-12.4); Platelet Count 379 K/mcL (140-400); Red Blood Count 3.93 M/mcL (4.19-5.50); Red Cell Distribution Width 13.7 % (11.5-14.5)
[2017-01-25 05:27] LABS: BUN/Creatinine Ratio 29 (6-26); Blood Urea Nitrogen 24 mg/dL (8-26); Calcium 8.4 mg/dL (8.6-10.8); Carbon Dioxide 36 mEq/L (19-29); Chloride 100 mEq/L (98-109); Glucose 186 mg/dL (70-99); Osmolality,Calculated 305 (280-300); Potassium 3.7 mEq/L (3.5-4.5); Sodium 143 mEq/L (136-145); eGFR For African Americans > 60 (> 60); eGFR For Non-African Americans > 60 (> 60)
[2017-01-25] MEDS: Budesonide/Formoterol 160/4.5 MDI IH SCH ×2 (08:38→19:34)
[2017-01-25] MEDS: GuaiFENesin Liq 200 MG/10 ML UDC PO SCH ×2 (09:51→20:07)
[2017-01-25] MEDS: Magic Mouthwash 10 ML UD Cup PO SCH ×3 (09:51→17:16)
[2017-01-25] MEDS: Aspirin Enteric Coated 81 MG Tablet PO SCH (09:51)
[2017-01-25] MEDS: Lactobacillus 1 EACH CAP.SPRINK PO SCH (09:51)
[2017-01-25] MEDS: predniSONE 20 MG TABLET PO SCH (09:52)
[2017-01-25] MEDS: (Roflumilast [Daliresp] 500 MCG) PO SCH (09:56)
[2017-01-25] MEDS: Levofloxacin 750 MG/150 ML 750 MG/150 ML BAG IVPB SCH (09:59)
--- NOTE | 2017-01-25 10:43 | Internal Med Progress Note ---
<Armand Allen - Last Filed: 01/25/17 10:41> Date of Encounter: 01/25/17 Time of Encounter: 10:41 - Assessment and plan (1) Acute exacerbation of chronic obstructive pulmonary disease (COPD) Current Visit: Yes Status: Acute Assessment and plan: Patient is in acute exacerbation of her COPD. Down to home O2 level at 2L. Reports he takes symbicort at home, but had a prior reaction to spiriva Plan: Continue steroids, mucinex, bronchodilators, and BiPAP Continue Zosyn day #6 - sputum culture growing pseudomonas - pending sensitivities Add Levaquin for double coverage until sensitivities available Wean oxygen as tolerated Due to increased shortness of breath this AM - recheck CXR today (2) Hypercapnic respiratory failure Current Visit: Yes Status: Acute Assessment and plan: Patient will elevated PCO2 54. Upon admission his PCO2 was 63. Clinically pt is much improved. Continue treatment as above Will obtain overnight BiPAP qualification Qualifiers: Chronicity: acute on chronic Qualified Code(s): J96.22 - Acute and chronic respiratory failure with hypercapnia (3) Pneumonia Current Visit: Yes Status: Suspected Assessment and plan: Left lower lobe pneumonia on CXR. On zosyn day #6 - will de-escalate antibiotics as able. WBC improving. Blood culture 01/19/17 - no growth to date Sputum culture 01/22/17 - growing pseudomonas - sensitivity pending Add Levaquin for double coverage Qualifiers: Pneumonia type: due to Pneumococcus Laterality: left Lung location: lower lobe of lung Qualified Code(s): J13 - Pneumonia due to Streptococcus pneumoniae (4) Primary cancer of right middle lobe of lung Current Visit: No Status: Acute Assessment and plan: History of for lung cancer. We will continue present treatment for him now - Subjective Interval history: Pt sitting comfortably in bed. Reports some increased difficulty breathing today. Some improvement after coughing and production of a large amount of sputum. He is now down to his home O2 level of 2L. Denies chest pain, N/V?D?C, dysuria, or leg pain/edema - Constitutional Vitals: Temp Pulse Resp BP Pulse Ox 97.8 F 83 16 123/73 95 01/25/17 07:37 01/25/17 07:37 01/25/17 08:38 01/25/17 07:37 01/25/17 08:38 General appearance: Present: A&O X 3, pleasant, no acute distress, answers questions appropriately - Head Head exam: Present: atraumatic, normocephalic - Eye Eye exam: Present: conjuntiva pink, sclera anicteric - Neck Neck exam general surgery: Present: supple, trachea midline. Absent: lymphadenopathy - Respiratory Respiratory exam: Present: decreased breath sounds. Absent: accessory muscle use, rales, rhonchi, wheezes - Cardiovascular Cardiovascular exam: Present: RRR, +S1, +S2. Absent: diastolic murmur, systolic murmur - GI/Abdominal GI/Abdominal exam: Present: normal bowel sounds, soft, no peritoneal signs. Absent: distended, tenderness - Extremities Exam Extremities exam: Present: warm, radial pulses palpable and symmetrical. Absent : calf tenderness, cyanotic, pedal edema - Neurological Exam Neurological exam: Present: CN II-XII intact, oriented X3, no focal deficits. Absent: facial droop, speech deficit - Skin Skin exam: Present: dry, intact Internal Medicine: Result - Labs CBC & Chem 7: 01/25/17 04:27 01/25/17 04:27 Labs: Short CBC 01/25/17 Range/Units 04:27 WBC 8.7 (4.3-11.1) K/mcL Hgb 10.3 L (12.9-16.9) g/dL Hct 34.6 L (37.5-50.1) % Plt Count 379 (140-400) K/mcL BMP 01/25/17 04:27 Sodium 143 Potassium 3.7 Chloride 100 Carbon Dioxide 36 H BUN 24 Creatinine 0.82 Glucose 186 H Calcium 8.4 L - ABG Interpretation ABG results: ABG ABG pH 7.39 pH Units (7.32-7.45) 01/21/17 09:36 ABG pCO2 54 mmHg (35-45) H 01/21/17 09:36 ABG pO2 44 mmHg (85-104) L* 01/21/17 09:36 ABG O2 Saturation 78 % (95-98) L 01/21/17 09:36 PT/INR, D-dimer PT 11.1 Seconds (9.4-12.1) 01/19/17 21:33 - VTE Documentation of Mechanical Device: Intermittent pneumatic compression device Consult Discharge Plan - Plan [facility]errals: [facility]Primary Care Provider[facility] - <Andre Newby - Last Filed: 01/25/17 18:26> Date of Encounter: 01/25/17 - Assessment and plan (1) Acute and chronic respiratory failure ([id number]) Current Visit: Yes Status: Acute Qualifiers: Respiratory failure complication: hypoxia and hypercapnia Qualified Code(s) : J96.21 - Acute and chronic respiratory failure with hypoxia; J96.22 - Acute and chronic respiratory failure with hypercapnia; J96.22 - Acute and chronic respiratory failure with hypercapnia; J96.22 - Acute and chronic respiratory failure with hypercapnia (2) Acute exacerbation of chronic obstructive pulmonary disease (COPD) Current Visit: Yes Status: Acute (3) Pneumonia Current Visit: Yes Status: Suspected Qualifiers: Pneumonia type: due to Pseudomonas Laterality: left Lung location: lower lobe of lung Qualified Code(s): J15.1 - Pneumonia due to Pseudomonas (4) Primary cancer of right middle lobe of lung Current Visit: No Status: Acute - Constitutional Vitals: Temp Pulse Resp BP Pulse Ox 98.6 F 79 16 112/72 94 01/25/17 15:33 01/25/17 15:33 01/25/17 16:06 01/25/17 16:06 01/25/17 16:06 Internal Medicine: Result - Labs CBC & Chem 7: 01/25/17 04:27 01/25/17 04:27 Labs: Short CBC 01/25/17 Range/Units 04:27 WBC 8.7 (4.3-11.1) K/mcL Hgb 10.3 L (12.9-16.9) g/dL Hct 34.6 L (37.5-50.1) % Plt Count 379 (140-400) K/mcL BMP 01/25/17 04:27 Sodium 143 Potassium 3.7 Chloride 100 Carbon Dioxide 36 H BUN 24 Creatinine 0.82 Glucose 186 H Calcium 8.4 L - ABG Interpretation ABG results: ABG ABG pH 7.39 pH Units (7.32-7.45) 01/21/17 09:36 ABG pCO2 54 mmHg (35-45) H 01/21/17 09:36 ABG pO2 44 mmHg (85-104) L* 01/21/17 09:36 ABG O2 Saturation 78 % (95-98) L 01/21/17 09:36 PT/INR, D-dimer PT 11.1 Seconds (9.4-12.1) 01/19/17 21:33 - Impressions Impressions Chest X-Ray 01/25/17 09:09 IMPRESSION: Regression of airspace disease from the left lung base in the interval, since 01/19/2017. Stable right upper and mid lung nodules. D/ / Guilherme Ramos MD / Guilherme Ramos MD Interpreting Provider: Guilherme Ramos MD - Attending Attestation I examined this patient and my medical decision-making was reviewed with the Resident Physician on 01/25/17. I agree with the documented findings, disposition and treatment plan as described except to the extent set forth below. Mr Allen is currently admitted for hypoxia and pneumonia. He remains moderate to high risk due to potential for worsening respiratory status. Mr Allen does not feel well this AM. No fever or chills. Very congested in chest. No abd pain. Improved with sitting up and coughing. Exam Alert. Comfortable Heart reg Diffuse wheeze and rhonchi Abd soft No edema I/P 1. Hypoxia 2. COPD 3. PNA Further diagnoses and plan as above.
[2017-01-25] MEDS: Finasteride 5 MG TABLET PO SCH (20:08)
[2017-01-26] MEDS: Ipratropium/Albuterol Neb 3 ML IH SCH ×6 (04:08→23:21)
[2017-01-26 04:48] LABS: Hematocrit 34.8 % (37.5-50.1); Hemoglobin 10.6 g/dL (12.9-16.9); Mean Corpuscular HGB Conc 30.5 g/dL (31.6-35.5); Mean Corpuscular Hemoglobin 26.9 pg (28.0-33.3); Mean Corpuscular Volume 88.3 fL (83.0-100.0); Mean Platelet Volume 8.9 fL (9.4-12.4); Platelet Count 353 K/mcL (140-400); Red Blood Count 3.94 M/mcL (4.19-5.50); Red Cell Distribution Width 13.6 % (11.5-14.5)
[2017-01-26 05:06] LABS: BUN/Creatinine Ratio 27 (6-26); Blood Urea Nitrogen 19 mg/dL (8-26); Calcium 8.4 mg/dL (8.6-10.8); Carbon Dioxide 35 mEq/L (19-29); Chloride 101 mEq/L (98-109); Glucose 92 mg/dL (70-99); Osmolality,Calculated 296 (280-300); Potassium 3.8 mEq/L (3.5-4.5); Sodium 142 mEq/L (136-145); eGFR For African Americans > 60 (> 60); eGFR For Non-African Americans > 60 (> 60)
[2017-01-26] MEDS: Piperacillin/Tazobactam 3.375 GM in D5% in Water (Mini-Bag+) 100 ML IVPB SCH ×3 (05:57→23:32)
[2017-01-26] MEDS: *HR* Heparin 5,000 UNIT/ML VIAL SQ SCH ×3 (05:58→21:20)
[2017-01-26] MEDS: Budesonide/Formoterol 160/4.5 MDI IH SCH ×2 (07:57→19:56)
[2017-01-26] MEDS: Aspirin Enteric Coated 81 MG Tablet PO SCH (08:43)
[2017-01-26] MEDS: predniSONE 20 MG TABLET PO SCH (08:43)
[2017-01-26] MEDS: Levofloxacin 750 MG/150 ML 750 MG/150 ML BAG IVPB SCH (08:44)
[2017-01-26] MEDS: Lactobacillus 1 EACH CAP.SPRINK PO SCH (08:44)
[2017-01-26] MEDS: GuaiFENesin Liq 200 MG/10 ML UDC PO SCH ×2 (08:47→21:14)
--- NOTE | 2017-01-26 09:16 | Internal Med Progress Note ---
<Armand Allen - Last Filed: 01/26/17 10:29> Date of Encounter: 01/26/17 Time of Encounter: 09:13 - Assessment and plan (1) Acute exacerbation of chronic obstructive pulmonary disease (COPD) Current Visit: Yes Status: Acute Assessment and plan: Patient is in acute exacerbation of COPD. Down to home O2 level at 2L. Reports he takes symbicort at home, but had a prior reaction to spiriva Repeat CXR shows improvement in airspace disease in left lower lobe Plan: Continue steroids, mucinex, bronchodilators, and BiPAP - tolerating BiPAP well Zosyn day #7 - sputum culture growing pseudomonas - pending sensitivities Levaquin day #2 for double coverage until sensitivities available (2) Acute and chronic respiratory failure ([id number]) Current Visit: Yes Status: Acute Assessment and plan: Patient will elevated PCO2 54. Upon admission his PCO2 was 63. Clinically pt is much improved. Continue treatment as above Will obtain overnight BiPAP qualification Qualifiers: Respiratory failure complication: hypoxia and hypercapnia Qualified Code(s) : J96.21 - Acute and chronic respiratory failure with hypoxia; J96.22 - Acute and chronic respiratory failure with hypercapnia; J96.22 - Acute and chronic respiratory failure with hypercapnia; J96.22 - Acute and chronic respiratory failure with hypercapnia (3) Pneumonia Current Visit: Yes Status: Suspected Assessment and plan: Left lower lobe pneumonia on CXR Zosyn day #7 - will de-escalate antibiotics as able. WBC improving. Levaquin day #2 Blood culture 01/19/17 - no growth to date Sputum culture 01/22/17 - growing pseudomonas - sensitivity pending Repeat CXR shows improvement Qualifiers: Pneumonia type: due to Pseudomonas Laterality: left Lung location: lower lobe of lung Qualified Code(s): J15.1 - Pneumonia due to Pseudomonas (4) Primary cancer of right middle lobe of lung Current Visit: No Status: Acute Assessment and plan: History of for lung cancer. We will continue present treatment for him now - Subjective Interval history: Pt sitting comfortably in bed. Reports his breathing is about at his baseline. Some improvement in his cough. Continued productive sputum. He is now down to his home O2 level of 2L. Denies chest pain, N/V/D/C, dysuria, or leg pain/edema - Constitutional Vitals: Temp Pulse Resp BP Pulse Ox 97.4 F L 90 18 130/90 96 01/26/17 08:32 01/26/17 08:32 01/26/17 08:32 01/26/17 08:32 01/26/17 07:57 General appearance: Present: A&O X 3, pleasant, no acute distress, answers questions appropriately - Head Head exam: Present: atraumatic, normocephalic - Eye Eye exam: Present: conjuntiva pink, sclera anicteric - Neck Neck exam general surgery: Present: supple, trachea midline. Absent: lymphadenopathy - Respiratory Respiratory exam: Present: wheezes (expiratory throughout). Absent: accessory muscle use, rales, rhonchi - Cardiovascular Cardiovascular exam: Present: RRR, +S1, +S2. Absent: diastolic murmur, systolic murmur - GI/Abdominal GI/Abdominal exam: Present: normal bowel sounds, soft, no peritoneal signs. Absent: distended, tenderness - Extremities Exam Extremities exam: Present: warm, radial pulses palpable and symmetrical. Absent : calf tenderness, cyanotic, pedal edema - Neurological Exam Neurological exam: Present: CN II-XII intact, oriented X3, no focal deficits. Absent: facial droop, speech deficit - Skin Skin exam: Present: dry, intact Internal Medicine: Result - Labs CBC & Chem 7: 01/26/17 03:40 01/26/17 03:40 Labs: Short CBC 01/26/17 Range/Units 03:40 WBC 8.9 (4.3-11.1) K/mcL Hgb 10.6 L (12.9-16.9) g/dL Hct 34.8 L (37.5-50.1) % Plt Count 353 (140-400) K/mcL BMP 01/26/17 03:40 Sodium 142 Potassium 3.8 Chloride 101 Carbon Dioxide 35 H BUN 19 Creatinine 0.71 L Glucose 92 Calcium 8.4 L - ABG Interpretation ABG results: ABG ABG pH 7.39 pH Units (7.32-7.45) 01/21/17 09:36 ABG pCO2 54 mmHg (35-45) H 01/21/17 09:36 ABG pO2 44 mmHg (85-104) L* 01/21/17 09:36 ABG O2 Saturation 78 % (95-98) L 01/21/17 09:36 PT/INR, D-dimer PT 11.1 Seconds (9.4-12.1) 01/19/17 21:33 - Impressions Impressions Chest X-Ray 01/25/17 09:09 IMPRESSION: Regression of airspace disease from the left lung base in the interval, since 01/19/2017. Stable right upper and mid lung nodules. D/ / Guilherme Ramos MD / Guilherme Ramos MD Interpreting Provider: Guilherme Ramos MD - VTE Documentation of Mechanical Device: Intermittent pneumatic compression device Consult Discharge Plan - Plan Referrals: [facility] [Primary Care Provider] - <Andre Newby - Last Filed: 01/26/17 17:55> Date of Encounter: 01/26/17 - Assessment and plan (1) Acute and chronic respiratory failure ([id number]) Current Visit: Yes Status: Acute Qualifiers: Respiratory failure complication: hypoxia and hypercapnia Qualified Code(s) : J96.21 - Acute and chronic respiratory failure with hypoxia; J96.22 - Acute and chronic respiratory failure with hypercapnia; J96.22 - Acute and chronic respiratory failure with hypercapnia; J96.22 - Acute and chronic respiratory failure with hypercapnia (2) Acute exacerbation of chronic obstructive pulmonary disease (COPD) Current Visit: Yes Status: Acute (3) Pneumonia Current Visit: Yes Status: Suspected Qualifiers: Pneumonia type: due to Pseudomonas Laterality: left Lung location: lower lobe of lung Qualified Code(s): J15.1 - Pneumonia due to Pseudomonas (4) Primary cancer of right middle lobe of lung Current Visit: No Status: Acute - Constitutional Vitals: Temp Pulse Resp BP Pulse Ox 98.4 F 86 18 109/57 94 01/26/17 15:44 01/26/17 15:44 01/26/17 15:44 01/26/17 15:44 01/26/17 15:44 Internal Medicine: Result - Labs CBC & Chem 7: 01/26/17 03:40 01/26/17 03:40 Labs: Short CBC 01/26/17 Range/Units 03:40 WBC 8.9 (4.3-11.1) K/mcL Hgb 10.6 L (12.9-16.9) g/dL Hct 34.8 L (37.5-50.1) % Plt Count 353 (140-400) K/mcL BMP 01/26/17 03:40 Sodium 142 Potassium 3.8 Chloride 101 Carbon Dioxide 35 H BUN 19 Creatinine 0.71 L Glucose 92 Calcium 8.4 L - ABG Interpretation ABG results: ABG ABG pH 7.39 pH Units (7.32-7.45) 01/21/17 09:36 ABG pCO2 54 mmHg (35-45) H 01/21/17 09:36 ABG pO2 44 mmHg (85-104) L* 01/21/17 09:36 ABG O2 Saturation 78 % (95-98) L 01/21/17 09:36 PT/INR, D-dimer PT 11.1 Seconds (9.4-12.1) 01/19/17 21:33 - Attending Attestation I examined this patient and my medical decision-making was reviewed with the Resident Physician on 01/26/17. I agree with the documented findings, disposition and treatment plan as described except to the extent set forth below. Mr Allen is currently admitted for acute resp failure and COPD. He remains moderate to high risk due to potential for continued respiratory issues. Mr. Allen is doing OK at this time. He is breathing about the same. No CP. No fever or chills. Awaiting sputum culture results. Exam Alert Comfortable Heart reg Lungs with some wheeze and rhonchi Abd soft No edema I/P 1. Acute exac COPD 2. Resp failure Further diagnoses and plan as above.
[2017-01-26] MEDS: Magic Mouthwash 10 ML UD Cup PO SCH ×3 (14:49→21:19)
[2017-01-26] MEDS: (Roflumilast [Daliresp] 500 MCG) PO SCH (14:56)
[2017-01-26] MEDS: Furosemide 20 MG TABLET PO SCH (14:57)
[2017-01-26] MEDS: Finasteride 5 MG TABLET PO SCH (21:16)
[2017-01-27] MEDS: Ipratropium/Albuterol Neb 3 ML IH SCH ×4 (03:44→16:18)
[2017-01-27 05:06] LABS: Hematocrit 35.7 % (37.5-50.1); Mean Corpuscular HGB Conc 30.8 g/dL (31.6-35.5); Mean Corpuscular Hemoglobin 26.7 pg (28.0-33.3); Mean Corpuscular Volume 86.7 fL (83.0-100.0); Mean Platelet Volume 8.7 fL (9.4-12.4); Platelet Count 300 K/mcL (140-400); Red Blood Count 4.12 M/mcL (4.19-5.50); Red Cell Distribution Width 13.8 % (11.5-14.5)
[2017-01-27 05:21] LABS: BUN/Creatinine Ratio 18 (6-26); Blood Urea Nitrogen 14 mg/dL (8-26); Calcium 8.6 mg/dL (8.6-10.8); Carbon Dioxide 37 mEq/L (19-29); Chloride 99 mEq/L (98-109); Glucose 104 mg/dL (70-99); Osmolality,Calculated 293 (280-300); Potassium 4.3 mEq/L (3.5-4.5); Sodium 141 mEq/L (136-145); eGFR For African Americans > 60 (> 60); eGFR For Non-African Americans > 60 (> 60)
[2017-01-27] MEDS: Budesonide/Formoterol 160/4.5 MDI IH SCH (07:43)
[2017-01-27] MEDS: *HR* Heparin 5,000 UNIT/ML VIAL SQ SCH ×2 (07:49→16:42)
[2017-01-27] MEDS ORDERED: levoFLOXacin 750 MG TABLET PO SCH (09:00)
[2017-01-27] MEDS: (Roflumilast [Daliresp] 500 MCG) PO SCH (09:17)
[2017-01-27] MEDS: GuaiFENesin Liq 200 MG/10 ML UDC PO SCH (09:20)
[2017-01-27] MEDS: Magic Mouthwash 10 ML UD Cup PO SCH ×3 (09:20→16:43)
[2017-01-27] MEDS: Aspirin Enteric Coated 81 MG Tablet PO SCH (09:21)
[2017-01-27] MEDS: predniSONE 20 MG TABLET PO SCH (09:21)
[2017-01-27] MEDS: Lactobacillus 1 EACH CAP.SPRINK PO SCH (09:21)
[2017-01-27 11:29] VITALS: BP 114/65
[2017-01-27] MEDS ORDERED: Piperacillin/Tazobactam 3.375 GM in D5% in Water 50 ML IVPB SCH (13:00)
--- NOTE | 2017-01-27 14:29 | Discharge Summary ---
<Armand Allen - Last Filed: 01/27/17 14:16> Date of Encounter: 01/27/17 Time of Encounter: 14:16 - Discharge Diagnosis (1) Acute exacerbation of chronic obstructive pulmonary disease (COPD) Priority: Primary Status: Acute (2) Acute and chronic respiratory failure ([id number]) Priority: Secondary Status: Acute Qualifiers: Respiratory failure complication: hypoxia and hypercapnia Qualified Code(s) : J96.21 - Acute and chronic respiratory failure with hypoxia; J96.22 - Acute and chronic respiratory failure with hypercapnia; J96.22 - Acute and chronic respiratory failure with hypercapnia; J96.22 - Acute and chronic respiratory failure with hypercapnia (3) Pneumonia Priority: Secondary Status: Suspected Qualifiers: Pneumonia type: due to Pseudomonas Laterality: left Lung location: lower lobe of lung Qualified Code(s): J15.1 - Pneumonia due to Pseudomonas (4) Primary cancer of right middle lobe of lung Priority: Secondary Status: Acute - Discharge Medications Prescriptions: Lactobacillus [Culturelle] 2 each PO DAILY #14 cap.sprink levoFLOXacin [Levaquin] 750 mg PO DAILY 2 Days #2 tablet predniSONE [PredniSONE] 10 mg PO DAILY #40 tablet Home Medications: Albuterol Sulfate [Albuterol Inhaler] 2 puff IH Q6H PRN 01/20/17 [History] Alendronate Sodium [Fosamax] 5 mg PO DAILY 01/20/17 [History] Aspirin Enteric Coated [Aspirin EC] 81 mg PO DAILY 01/20/17 [History] Budesonide/Formoterol 160/4.5 [Symbicort 160/4.5] 2 puff IH BIDR 01/20/17 [ History] Carvedilol 3.125 mg PO BID 01/20/17 [History] Finasteride [Proscar] 5 mg PO HS 01/20/17 [History] Furosemide [Lasix] 20 mg PO MOTUTH 01/20/17 [History] Ipratropium/Albuterol Neb [Duoneb] 3 ml IH Q4HR 01/20/17 [History] Ipratropium/Albuterol Neb [Duoneb] 3 ml IH Q6HR 01/20/17 [History] Omeprazole [PriLOSEC] 20 mg PO DAILY 01/20/17 [History] Roflumilast [Daliresp] 500 mcg PO DAILY 01/20/17 [History] Tamsulosin [Flomax] 0.4 mg PO BID 01/20/17 [History] guaiFENesin [Guaifenesin] 400 mg PO BID 01/20/17 [History] Lactobacillus [Culturelle] 2 each PO DAILY #14 cap.josafatink 01/27/17 [Rx] levoFLOXacin [Levaquin] 750 mg PO DAILY 2 Days #2 tablet 01/27/17 [Rx] predniSONE [PredniSONE] 10 mg PO DAILY #40 tablet 01/27/17 [Rx] Allergies/Adverse Reactions: 3 Allergy/AdvReac Type Severity Reaction Status Date / Time lisinopril Allergy Unknown See Verified 01/19/17 21:53 Comments sulfamethoxazole Allergy See Verified 01/19/17 21:53 Comments trimethoprim Allergy See Verified 01/19/17 21:53 Comments Date of admission: 01/20/17 00:04 Primary care physician: [facility] Discharging clinician: Armand Allen Anticipated date of discharge: 01/27/17 - Patient Status Disposition: Home, Self-Care Condition: Good Functional capacity at discharge: independent ambulation Overall status at discharge: patient is back to baseline - Discharge Instructions Instructions: Prednisone (By mouth), Levofloxacin (By mouth), Probiotic (By mouth), Acute Respiratory Distress Syndrome (DC), Chronic Obstructive Pulmonary Disease (DC) Follow Up With: [facility],PCP [Primary Care Provider] - 01/31/17 11:00 am Additional Instructions: Take your medications and inhalers as prescribed Continue Levaquin (antibiotic) for 2 more days Decreased Prednisone as prescribed until back to your home dose Follow-up with your PCP Return to the hospital if your symptoms return or worsen - Diet and Activity Activity: increase activity as tolerated, wear oxygen at all times, other ( continue to use BiPAP at night) Diet: advance to your usual diet Interval History: Pt doing well this AM with no complaints. Reports his breathing is back to his baseline. Continues to have some chest congestion and cough, but this is improving as well. Denies chest pain, N/V/D/C, dysuria, or leg pain/edema. Hospital course: Mr. Allen is a 76 year old male presenting from the [facility] with acute exacerbation of COPD, pneumonia, and acute on chronic respiratory failure. He received 8 days of Zosyn and 3 days of Levaquin. Upon discharge he will continue Levaquin for 2 more days. Sputum cultures showed a small amount of Pseudomonas, which required a send-out to obtain sensitivities. At present the sensitivities are not back, but we will call him with an update when available. Mr. Allen has improved clinically and has been back to his home oxygen dose of 2L for several days. He understands that if his symptoms return he is to return to the hospital. He was continued on BiPAP at night and tolerated it well. He is to continue his home medications, oxygen, and BiPAP. He is to follow -up with his PCP. - Time Spent with Patient Total time spent providing and/or coordinating discharge services: Less than 30 minutes - Constitutional Vitals: Temp Pulse Resp BP Pulse Ox 97.9 F 88 16 114/65 96 01/27/17 11:28 01/27/17 11:28 01/27/17 11:28 01/27/17 11:28 01/27/17 11:28 General appearance: Present: A&O X 3, pleasant, no acute distress, answers questions appropriately - Head Head exam: Present: atraumatic, normocephalic - Eye Eye exam: Present: conjuntiva pink, sclera anicteric - Neck Neck exam general surgery: Present: supple, trachea midline. Absent: lymphadenopathy - Respiratory Respiratory exam: Present: decreased breath sounds, wheezes. Absent: accessory muscle use, rales, rhonchi - Cardiovascular Cardiovascular exam: Present: RRR, +S1, +S2. Absent: diastolic murmur, systolic murmur - GI/Abdominal GI/Abdominal exam: Present: normal bowel sounds, soft, no peritoneal signs. Absent: distended, tenderness - Extremities Exam Extremities exam: Present: warm, radial pulses palpable and symmetrical. Absent : calf tenderness, cyanotic, pedal edema - Neurological Exam Neurological exam: Present: CN II-XII intact, oriented X3, no focal deficits. Absent: facial droop, speech deficit - Skin Skin exam: Present: dry, intact - VTE Documentation of Mechanical Device: Intermittent pneumatic compression device <Andre Newby - Last Filed: 01/27/17 18:20> Date of Encounter: 01/27/17 - Discharge Diagnosis (1) Acute and chronic respiratory failure ([id number]) Priority: Primary Status: Acute Qualifiers: Respiratory failure complication: hypoxia and hypercapnia Qualified Code(s) : J96.21 - Acute and chronic respiratory failure with hypoxia; J96.22 - Acute and chronic respiratory failure with hypercapnia; J96.22 - Acute and chronic respiratory failure with hypercapnia; J96.22 - Acute and chronic respiratory failure with hypercapnia (2) Acute exacerbation of chronic obstructive pulmonary disease (COPD) Status: Acute (3) Pneumonia Status: Suspected Qualifiers: Pneumonia type: due to Pseudomonas Laterality: left Lung location: lower lobe of lung Qualified Code(s): J15.1 - Pneumonia due to Pseudomonas (4) Primary cancer of right middle lobe of lung Status: Acute Date of admission: 01/20/17 00:04 Primary care physician: [facility] Hospital course: Mr. Allen is a 76 year old male - Time Spent with Patient Total time spent providing and/or coordinating discharge services: My discharge time was 37min - Constitutional Vitals: Temp Pulse Resp BP Pulse Ox 97.9 F 88 16 114/65 96 01/27/17 11:28 01/27/17 11:28 01/27/17 16:19 01/27/17 11:28 01/27/17 16:19 - Attending Attestation I examined this patient and my medical decision-making was reviewed with the Resident Physician on 01/27/17. I agree with the documented findings, disposition and treatment plan as described except to the extent set forth below. Mr Allen has been admitted for hypoxia and COPD. He is now afebrile with stable vitals He overall is progressing back to baseline. His culture is still pending but he is ready for discharge home on PO abx. Exam Alert. Comfortable Heart reg Scant wheeze Abd soft Plan D/C home today
== END 2017-01-27 19:05 | disposition home or self-care (01) | DRG 190 ==
LOC: EMEROO 21:12 → 2NENU 01-20 00:04 → SUATTDRO 01-20 00:04 → 2NENU 01-20 01:16
PROVIDERS: ADMIT Hospitalist; ATTEND Internal Medicine